=== PATIENT | female | born 1980 | race Caucasian/White ===

== ENCOUNTER 2016-09-11 12:59 | Emergency (ER) | payer OTHER ==
--- NOTE | 2016-09-11 13:57 | ED ORDER SUMMARY ---
..... Patient: BROOKE ÁLVAREZ OrderSheet [facility] VisitID: [id number] [address] [place] [address] 36y, F Registration Date/Time: 09/11/2016 ORDER SHEET Weight: 66.6 kg (stated) Allergies: Dilaudid, Hydocodone, Penicillins, Topamax GENERAL ORDERS: MEDICATION ORDERS: Ativan IM 2 mg (HIGH ALERT MEDICATION, NOW) (13:26 09/11/2016 Dorie A.R.N.P.) (14:13 Susy R.N.) IV FLUIDS: ORDER SHEET NOTES: [Electronically signed by Latanya Solis R.N. (14:23 09/11/2016)] [Electronically signed by Denisse TorrezR.N.P. (15:01 09/11/2016)] [Electronically locked/signed by Latanya Solis R.N. (14:23 09/11/2016)]
--- NOTE | 2016-09-11 13:57 | ED ORDER SUMMARY ---
..... Patient: BROOKE ÁLVAREZ OrderSheet [facility] VisitID: [id number] [address] [place] [address] 36y, F Registration Date/Time: 09/11/2016 ORDER SHEET Weight: 66.6 kg (stated) Allergies: Dilaudid, Hydocodone, Penicillins, Topamax GENERAL ORDERS: MEDICATION ORDERS: Ativan IM 2 mg (HIGH ALERT MEDICATION, NOW) (13:26 09/11/2016 Dorie A.R.N.P.) (14:13 Susy R.N.) IV FLUIDS: ORDER SHEET NOTES: [Electronically signed by Latanya Solis R.N. (14:23 09/11/2016)] [Electronically signed by Denisse TorrezR.N.P. (15:01 09/11/2016)] [Electronically locked/signed by Latanya Solis R.N. (14:23 09/11/2016)]
--- NOTE | 2016-09-11 13:57 | ED NURSING NOTES ---
Clinical Report - Nurses Merged With [facility] [address] [place] [address] 09/11/2016 13:03 Patient: BROOKE ÁLVAREZ TRIAGE Triage time 13:14 Sep 11 2016. Acuity: LEVEL 4. Chief Complaint: ANXIETY. Alert. No acute distress. --13:19 Latanya Solis R.N. 13:14 09/11/16. BP: 108/77. HR: 78. RR: 16. O2 saturation: 98%. Temp: 98.4 F. Pain level now: 010. --13:19 Latanya Solis R.N. Weight: 66.6 kg stated. Height/Length: 65 inches Per Patient. BMI: 24.5. --13:18 Latanya Solis R.N. Medications OxyCODONE HCl Oral. --13:15 Latanya Solis R.N. Cipro for kidney infection. Vitamins Oral. --13:15 Latanay Solis R.N. Allergies Dilaudid.(confusion) (skin sores) --13:15 Latanya Solis R.N. Hydocodone. Definite Moderate (CASTELLANOS's) Penicillins. Definite (as an infant) Topamax. Possible Moderate (Deep Sleep) --13:15 Latanya Solis R.N. History Arrived by private vehicle. Historian: patient. Accompanied by family. Onset. (5 days ago). ( pt states that she has many things going on and is very stressful.). She has had sleeping difficulties. Denies feelings of depression or having hallucinations. Treatment [employer]IPPER: None. PAST MEDICAL HX: Immunizations: up-to-date. Last normal menstrual period now. Denies current . SOCIAL HX: Never smoker. No alcohol use or drug use. No infectious disease exposure. SELF HARM ASSESSMENT: A self harm assessment was performed. The patient was asked "Do you have thoughts of harming or killing yourself?". FALL RISK ASSESSMENT: Fall risk assessment completed. No fall risk identified. NUTRITIONAL RISK ASSESSMENT: The nutritional risk assessment revealed no deficiencies. FUNCTIONAL ASSESSMENT: Functional assessment: no impairments noted. LEARNING NEEDS ASSESSMENT: The learning needs assessment revealed no barriers. ABUSE ASSESSMENT: Abuse assessment: The patient was asked "Do you feel safe in your home?". SKIN INTEGRITY ASSESSMENT: Skin integrity risk assessment completed. No skin integrity risk identified. --13:19 Latanya Solis R.N. PROBLEMS: Post-Op Complications. Fractured Phalanx (Toe). Gestational diabetes mellitus. Problems. Care. OB History. Pelvic Pain. . Influenza. Flu . UTI - Urinary Tract Infection. Dysfunctional Uterine Bleeding. Dysmenorrhea. Nausea. Abdominal Pain. Dental Pain. Dental Caries. Dental Abscess. Depression. Substance Abuse. Immunizations. Back Pain. LNMP - Last Normal Menstrual Period. --13:16 Latanya Solis R.N. ADDITIONAL SURGERIES: Back Surgery. . Dental Surgery. Foot. Toe surgery. --13:17 Latanya Solis R.N. Interventions ID band on patient. --13:19 Latanya Solis R.N. PHYSICAL ASSESSMENT GENERAL / NEURO / PSYCH: Alert. Oriented X 4. Appears in no acute distress. Speech within normal limits. Patient appears calm and cooperative. Patient appears well-nourished and neat and clean. RESPIRATORY: Respirations not labored. CVS: Capillary refill less than 2 seconds. GI / : Abdomen soft and nontender. SKIN: Skin is warm and dry. --13:19 Latanya Solis R.N. NURSING PROGRESS NOTES Suicide precautions initiated. Family at bedside. Two patient identifiers checked. Call light placed in reach. Side rails up x 1. Bed placed in lowest position. Brakes of bed on. --13:20 Latanya Solis R.N. 14:13 09/11/2016 Ativan (LORazepam) IM 2 mg given. Given in the left deltoid. Allergies verified, confirmed 5 rights and sedative warning given to the patient. --14:13 Latanya Solis R.N. DISPOSITION / DISCHARGE The following issues were addressed: psycho-social issues. --14:14 Latanya Solis R.N. 14:14 09/11/16. BP: 109/69. HR: 70. O2 saturation: 97%. --14:14 Latanya Solis R.N. Departure time: 14:Sep 11 2016. No learning barriers present. Discharge instructions provided and reviewed with the patient. Reviewed warnings (no driving). Reviewed medication(s) side effects, precautions, dosing and course information. Prescription(s) given to the patient. Reviewed referral to a primary care physician. Activity restrictions (no driving) reviewed. Patient verbalized understanding. Written instructions provided in Occitan. The patient was discharged home and accompanied by spouse. She left the Emergency Department ambulatory and via private vehicle. Spouse driving. --14:22 Latanya Solis R.N. Locked/Released at 09/11/2016 14:23 by Latanya Solis R.N.
--- NOTE | 2016-09-11 13:57 | ED CLINICAL REPORT ---
Clinical Report - Physicians/Mid Levels [facility] [address] [place] [address] 09/11/2016 13:03 Patient: BROOKE ÁLVAREZ Time Seen: 1315; initial patient contact, initial documentation, patient care assumed. Arrived- By private vehicle. Not in custody. Historian- patient. HISTORY OF PRESENT ILLNESS Chief Complaint: ANXIOUS. This started about 1 months ago. The patient has experienced situational problems but not exhibited a behavior change and was not found wandering and is compliant with medication. (having panic/anxiety attack, has had them before, but they are getting much worse, before she could calm herself down, and now she feels like she can't, when they come on they come on really strong, full blown, starts breathing fast, gets chest discomfort, sweaty). No recent drug use or alcohol consumption. Has not been sleeping. She has had anxiety. Has not been depressed. No anger, unusual behavior, paranoia, delusions or self-injury inflicted. No hallucinations. The symptoms are described as severe. No injury is present. Additional history - under lots of stress, left spouse, in family, and more. needs something to calm her down and help relax has appt at 1500 today with , wanted to come here first. Similar symptoms previously: Recent medical care: Not recently seen/assessed. REVIEW OF SYSTEMS No chest pain, palpitations, vomiting or diarrhea. All systems otherwise negative, except as recorded above. PAST HISTORY See nurses notes. ( PROBLEMS: Post-Op Complications. Fractured Phalanx (Toe). Gestational diabetes mellitus. Problems. Care. OB History. Pelvic Pain. . Influenza. Flu . UTI - Urinary Tract Infection. Dysfunctional Uterine Bleeding. Dysmenorrhea. Nausea. Abdominal Pain. Dental Pain. Dental Caries. Dental Abscess. Depression. Substance Abuse. Immunizations. Back Pain. LNMP - Last Normal Menstrual Period. --13:16 Latanya Solis R.N. ADDITIONAL SURGERIES: Back Surgery. . Dental Surgery. Foot. Toe surgery. --13:17 Latanya Solis R.N.). SOCIAL HISTORY Never smoker. No alcohol use or drug use. Has social support. Has place to stay. FAMILY HISTORY Negative. ADDITIONAL NOTES The nursing notes have been reviewed with agreement regarding the chief complaint, HPI, ROS, PMH and patient medications and allergies. PHYSICAL EXAM Vital Signs: 09/11/2016 13:14 BP: 108/77. HR: 78. RR: 16. O2 saturation: 98%. Temp: 98.4 F. Pain level now: 0/10. Have been reviewed as normal and appear to be correct. Appearance: Alert. No acute distress. Appearance is normal. Anxious. Eyes: Pupils equal, round and reactive to light. Neck: Normal inspection. Neck supple. CVS: Normal heart rate and rhythm. Heart sounds normal. Respiratory: Breath sounds normal. Chest nontender. Back: No tenderness. Skin: Skin warm and dry. Normal skin color. Normal skin turgor. Extremities: Extremities exhibit normal ROM. No lower extremity edema. Psych / Neuro: Oriented X 3. Abnormal mood and affect. Speech normal. Cognition normal. Thought process and content normal. Insight and judgement normal. Cranial nerves normal (as tested). No cerebellar findings. No motor deficit. No sensory deficit. PROGRESS AND PROCEDURES Course of Care: 1410. Eber Houston here, pt advocate, stating that the pt called her from her exam room and asking what was wrong, caught me unaware, I didn't know there was an issue, nurse taking care of pt didn't report anything to me, and pt seemed fine with me and tx plan, happy that I was giving her injection here. Patient counseled in person regarding the patient's stable condition and diagnosis. Differential Diagnosis: Other possible considerations: substance abuse, anxiety, bipolar, manic. Above considerations are based on history and physical exam. Differential diagnosis was discussed with patient. Disposition: Discharged home in good and improved condition (13:57). Condition: good and stable. CLINICAL IMPRESSION Anxiety reaction. INSTRUCTIONS Prescription Medications: Xanax 0.25 mg: Take 1 orally every 8 hours as needed for anxiety. Dispense fifteen (15). No refills. Substitution is permissible. Follow-up: Follow up with your doctor keep today's 1500 appt, as discussed today as scheduled even if well. Summary of care provided to patient. Understanding of the discharge instructions verbalized by patient. (Electronically signed by Denisse Torrez A.R.N.P. 09/11/2016 15:01)
--- NOTE | 2016-09-11 13:57 | ED NURSING NOTES ---
Clinical Report - Nurses [facility] [address] [place] [address] 09/11/2016 13:03 Patient: BROOKE ÁLVAREZ TRIAGE Triage time 13:14 Sep 11 2016. Acuity: LEVEL 4. Chief Complaint: ANXIETY. Alert. No acute distress. --13:19 Latanya Solis R.N. 13:14 09/11/16. BP: 108/77. HR: 78. RR: 16. O2 saturation: 98%. Temp: 98.4 F. Pain level now: 010. --13:19 Latanya Solis R.N. Weight: 66.6 kg stated. Height/Length: 65 inches Per Patient. BMI: 24.5. --13:18 Latanya Solis R.N. Medications OxyCODONE HCl Oral. --13:15 Latanya Solis R.N. Cipro for kidney infection. Vitamins Oral. --13:15 Latanya Solis R.N. Allergies Dilaudid.(confusion) (skin sores) --13:15 Latanya Solis R.N. Hydocodone. Definite Moderate (CASTELLANOS's) Penicillins. Definite (as an infant) Topamax. Possible Moderate (Deep Sleep) --13:15 Latanya Solis R.N. History Arrived by private vehicle. Historian: patient. Accompanied by family. Onset. (5 days ago). ( pt states that she has many things going on and is very stressful.). She has had sleeping difficulties. Denies feelings of depression or having hallucinations. Treatment [employer] DR[employer]: None. PAST MEDICAL HX: Immunizations: up-to-date. Last normal menstrual period now. Denies current . SOCIAL HX: Never smoker. No alcohol use or drug use. No infectious disease exposure. SELF HARM ASSESSMENT: A self harm assessment was performed. The patient was asked "Do you have thoughts of harming or killing yourself?". FALL RISK ASSESSMENT: Fall risk assessment completed. No fall risk identified. NUTRITIONAL RISK ASSESSMENT: The nutritional risk assessment revealed no deficiencies. FUNCTIONAL ASSESSMENT: Functional assessment: no impairments noted. LEARNING NEEDS ASSESSMENT: The learning needs assessment revealed no barriers. ABUSE ASSESSMENT: Abuse assessment: The patient was asked "Do you feel safe in your home?". SKIN INTEGRITY ASSESSMENT: Skin integrity risk assessment completed. No skin integrity risk identified. --13:19 Latanya Solis R.N. PROBLEMS: Post-Op Complications. Fractured Phalanx (Toe). Gestational diabetes mellitus. Problems. Care. OB History. Pelvic Pain. . Influenza. Flu . UTI - Urinary Tract Infection. Dysfunctional Uterine Bleeding. Dysmenorrhea. Nausea. Abdominal Pain. Dental Pain. Dental Caries. Dental Abscess. Depression. Substance Abuse. Immunizations. Back Pain. LNMP - Last Normal Menstrual Period. --13:16 Latanya Solis R.N. ADDITIONAL SURGERIES: Back Surgery. . Dental Surgery. Foot. Toe surgery. --13:17 Latanya Solis R.N. Interventions ID band on patient. --13:19 Latanya Solis R.N. PHYSICAL ASSESSMENT GENERAL / NEURO / PSYCH: Alert. Oriented X 4. Appears in no acute distress. Speech within normal limits. Patient appears calm and cooperative. Patient appears well-nourished and neat and clean. RESPIRATORY: Respirations not labored. CVS: Capillary refill less than 2 seconds. GI / : Abdomen soft and nontender. SKIN: Skin is warm and dry. --13:19 Latanya Solis R.N. NURSING PROGRESS NOTES Suicide precautions initiated. Family at bedside. Two patient identifiers checked. Call light placed in reach. Side rails up x 1. Bed placed in lowest position. Brakes of bed on. --13:20 Latanya Solis R.N. 14:13 09/11/2016 Ativan (LORazepam) IM 2 mg given. Given in the left deltoid. Allergies verified, confirmed 5 rights and sedative warning given to the patient. --14:13 Laatnya Solis R.N. DISPOSITION / DISCHARGE The following issues were addressed: psycho-social issues. --14:14 Latanya Solis R.N. 14:14 09/11/16. BP: 109/69. HR: 70. O2 saturation: 97%. --14:14 Latanya Solis R.N. Departure time: 14:Sep 11 2016. No learning barriers present. Discharge instructions provided and reviewed with the patient. Reviewed warnings (no driving). Reviewed medication(s) side effects, precautions, dosing and course information. Prescription(s) given to the patient. Reviewed referral to a primary care physician. Activity restrictions (no driving) reviewed. Patient verbalized understanding. Written instructions provided in Portuguese. The patient was discharged home and accompanied by spouse. She left the Emergency Department ambulatory and via private vehicle. Spouse driving. --14:22 Latanya Solis R.N. Locked/Released at 09/11/2016 14:23 by Latanya Solis R.N.
--- NOTE | 2016-09-11 15:02 | ED MED RECONCILIATION SUMMARY ---
Patient: BROOKE ÁLVAREZ Medication Reconciliation Report [facility] VisitID: [id number] [address] [place] [address] 36y, F Registration Date/Time: 09/11/2016 Weight: 66.6 kg Height/Length: 65 in. BMI: 24.5 ALLERGIES: Dilaudid, Hydocodone, Penicillins, Topamax The patient's Home Medications are listed below: THE FOLLOWING MEDICATIONS NEED TO BE RECONCILED: Cipro for kidney infection OxyCODONE HCl Oral Vitamins Oral The source(s) of the original Home Medication information: Not obtained. The following Medications were given to the patient in the Emergency Department: Ativan [IM] IM 2 mg, administered: 09/11/2016 2:13:00 PM The following Medications were prescribed to the patient: Xanax 0.25 mg: Take 1 orally every 8 hours as needed for anxiety. Dispense fifteen (15). No refills. Substitution is permissible. -- Denisse Torrez A.R.N.P.
--- NOTE | 2016-09-11 15:02 | ED DISCHARGE INSTRUCTIONS ---
Patient: BROOKE ÁLVAREZ General Instructions [facility] VisitID: [id number] [address] [place] [address] 36y, F Registration Date/Time: 09/11/2016 Anxiety reaction. INSTRUCTIONS Prescription Medications: Xanax 0.25 mg: Take 1 orally every 8 hours as needed for anxiety. Dispense fifteen (15). No refills. Substitution is permissible. Follow-up: Follow up with your doctor keep today's 1500 appt, as discussed today as scheduled even if well. Summary of care provided to patient. Understanding of the discharge instructions verbalized by patient. ADDITIONAL INFORMATION Stress Reaction Anxiety is the feeling we all get when we think something bad might happen. It is a normal response to stress and usually causes only a mild reaction. When anxiety becomes more severe, emotions may interfere with daily life. In some cases, you may not even be aware of what it is youre anxious about! During an anxiety reaction, you may feel like you are helpless, nervous, depressed or irritable. Your body may show signs of anxiety in many ways. You may experience dry mouth, shakiness, dizziness, weakness, trouble breathing, chest pressure, headache, nausea, diarrhea, tiredness, inability to sleep or sexual problems. Home Care: 1) Try to locate the sources of stress in your life. They may not be obvious! These may include: -- Daily hassles of life which pile up (traffic jams, missed appointments, car troubles, etc.) -- Major life changes, both good (new baby, job promotion) and bad (loss of job, loss of loved one) -- Overload: feeling that you have too many responsibilities and can't take care of all of them at once -- Feeling helpless, feeling that your problems are beyond what youre able to solve 2) Notice how your body reacts to stress. Learn to listen to your body signals. This will help you take action before the stress becomes severe. 3) When you can, do something about the source of your stress. (Avoid hassles, limit the amount of change that happens in your life at one time and take a break when you feel overloaded). 4) Unfortunately, many stressful situations cannot be avoided. It is necessary to learn HOW TO MANAGE STRESS better. There are many proven methods that will reduce your anxiety. These include simple things like exercise, good nutrition and adequate rest. Also, there are certain techniques that are helpful: relaxation and breathing exercises, visualization, biofeedback and meditation. For more information about this, consult your doctor or go to a local bookstore and review the many books and tapes available on this subject. Follow Up If you feel that your anxiety is not responding to self-help measures, contact your doctor or make an appointment with a counselor. Get Prompt Medical Attention if any of the following occur: -- Your symptoms get worse -- Chest pain or trouble breathing -- Severe headache not relieved by rest and mild pain reliever -- Rapid or irregular heartbeat, fainting Panic Attack A panic attack is an extreme fear reaction that comes on for no apparent reason. Symptoms may include pounding or racing heartbeat, shortness of breath, dizziness, weakness and sweating. There is usually a fear that something terrible will happen or that you may . The attack may last a few minutes up to a few hours. Between attacks things will seem quite normal. This condition has a psychological cause and can be treated with the help of a therapist or psychiatrist. Medication is often used and can be very helpful for this problem. Home Care: Try to identify the sources of stress in your life. It may not be obvious! These may include: Daily hassles of life which pile up (traffic jams, missed appointments, car troubles, etc.). Major life changes, both good (new baby, job promotion) and bad (loss of job, loss of loved one). Overload: feeling that you have too many responsibilities and can't take care of everything at once. Helplessness: feeling like your problems are too much for you to handle. Notice how your body reacts to stress. Learn to listen to your body signals so that you can take action before the stress becomes severe. When possible, AVOID or REDUCE THE CAUSE OF STRESS. Avoid hassles, limit the amount of change that is happening in your life at one time or take a break when you feel overloaded. Unfortunately, many stressful situations cannot be avoided. Therefore, it is necessary to LEARN HOW TO MANAGE STRESS better. There are many proven methods that work and will reduce your anxiety. These include simple things like exercise, good nutrition and adequate rest. Also, there are certain techniques that are helpful: relaxation and breathing exercises, visualization, biofeedback, meditation or simply taking some time-out to clear your mind. For more information about this, consult your doctor or go to a local bookstore and review the many books and tapes available on this subject. Follow Up with your doctor or a therapist as advised. Get Prompt Medical Attention if any of the following occur: Worsening of your symptoms to the point of feeling [id number] A change in the type of pain: if it feels different, becomes more severe, lasts longer, or begins to spread into your shoulder, arm, neck, jaw or back Shortness of breath or increased pain with breathing Increasing feeling of weakness or dizziness Fainting Cough with dark colored sputum (phlegm) or blood Fever of 100.4F (38C) or higher, or as directed by your healthcare provider Swelling, pain or redness in one leg Alprazolam Oral tablet What is this medicine? ALPRAZOLAM (al PRAY jamie yip) is a benzodiazepine. It is used to treat anxiety and panic attacks. How should I use this medicine? Take this medicine by mouth with a glass of water. Follow the directions on the prescription label. Take your medicine at regular intervals. Do not take it more often than directed. If you have been taking this medicine regularly for some time, do not suddenly stop taking it. You must gradually reduce the dose or you may get severe side effects. Ask your doctor or health child care worker for advice. Even after you stop taking this medicine it can still affect your body for several days. Talk to your boarder hand regarding the use of this medicine in children. Special care may be needed. What side effects may I notice from receiving this medicine? Side effects that you should report to your doctor or health child care worker as soon as possible: allergic reactions like skin rash, itching or hives, swelling of the face, lips, or tongue confusion, forgetfulness depression difficulty sleeping difficulty speaking feeling faint or lightheaded, falls mood changes, excitability or aggressive behavior muscle cramps trouble passing urine or change in the amount of urine unusually weak or tired Side effects that usually do not require medical attention (report to your doctor or health child care worker if they continue or are bothersome): change in sex drive or performance changes in appetite What may interact with this medicine? Do not take this medicine with any of the following medications: certain medicines for HIV infection or AIDS ketoconazole itraconazole This medicine may also interact with the following medications: control pills certain macrolide antibiotics like clarithromycin, erythromycin, troleandomycin cimetidine cyclosporine ergotamine grapefruit juice herbal or dietary supplements like kava kava, melatonin, dehydroepiandrosterone, DHEA, Gunner's Wort or valerian imatinib, STI-571 isoniazid levodopa medicines for depression, anxiety, or psychotic disturbances prescription pain medicines rifampin, rifapentine, or rifabutin some medicines for blood pressure or heart problems some medicines for seizures like carbamazepine, oxcarbazepine, phenobarbital, phenytoin, primidone What if I miss a dose? If you miss a dose, take it as soon as you can. If it is almost time for your next dose, take only that dose. Do not take double or extra doses. Where should I keep my medicine? Keep out of the reach of children. This medicine can be abused. Keep your medicine in a safe place to protect it from theft. Do not share this medicine with anyone. Selling or giving away this medicine is dangerous and against the law. Store at room temperature between 20 and 25 degrees C (68 and 77 degrees F). Throw away any unused medicine after the expiration date. What should I tell my health care provider before I take this medicine? They need to know if you have any of these conditions: an alcohol or drug abuse problem bipolar disorder, depression, psychosis or other mental health conditions glaucoma kidney or liver disease lung or breathing disease myasthenia gravis Parkinson's disease porphyria seizures or a history of seizures suicidal thoughts an unusual or allergic reaction to alprazolam, other benzodiazepines, foods, dyes, or preservatives or trying to get breast-feeding What should I watch for while using this medicine? Visit your doctor or health child care worker for regular checks on your progress. Your body can become dependent on this medicine. Ask your doctor or health child care worker if you still need to take it. You may get drowsy or dizzy. Do not drive, use machinery, or do anything that needs mental alertness until you know how this medicine affects you. To reduce the risk of dizzy and fainting spells, do not stand or sit up quickly, especially if you are an older patient. Alcohol may increase dizziness and drowsiness. Avoid alcoholic drinks. Do not treat yourself for coughs, colds or allergies without asking your doctor or health child care worker for advice. Some ingredients can increase possible side effects. You have been given the following additional information: Anxiety Reaction Panic Attack Alprazolam Oral tablet (Electronically signed by Denisse Torrez A.R.N.P. 09/11/2016 15:01)
--- NOTE | 2016-09-11 15:02 | ED DISCHARGE INSTRUCTIONS ---
Patient: BROOKE ÁLVAREZ General Instructions [facility] VisitID: [id number] [address] [place] [address] 36y, F Registration Date/Time: 09/11/2016 Anxiety reaction. INSTRUCTIONS Prescription Medications: Xanax 0.25 mg: Take 1 orally every 8 hours as needed for anxiety. Dispense fifteen (15). No refills. Substitution is permissible. Follow-up: Follow up with your doctor keep today's 1500 appt, as discussed today as scheduled even if well. Summary of care provided to patient. Understanding of the discharge instructions verbalized by patient. ADDITIONAL INFORMATION Stress Reaction Anxiety is the feeling we all get when we think something bad might happen. It is a normal response to stress and usually causes only a mild reaction. When anxiety becomes more severe, emotions may interfere with daily life. In some cases, you may not even be aware of what it is youre anxious about! During an anxiety reaction, you may feel like you are helpless, nervous, depressed or irritable. Your body may show signs of anxiety in many ways. You may experience dry mouth, shakiness, dizziness, weakness, trouble breathing, chest pressure, headache, nausea, diarrhea, tiredness, inability to sleep or sexual problems. Home Care: 1) Try to locate the sources of stress in your life. They may not be obvious! These may include: -- Daily hassles of life which pile up (traffic jams, missed appointments, car troubles, etc.) -- Major life changes, both good (new baby, job promotion) and bad (loss of job, loss of loved one) -- Overload: feeling that you have too many responsibilities and can't take care of all of them at once -- Feeling helpless, feeling that your problems are beyond what youre able to solve 2) Notice how your body reacts to stress. Learn to listen to your body signals. This will help you take action before the stress becomes severe. 3) When you can, do something about the source of your stress. (Avoid hassles, limit the amount of change that happens in your life at one time and take a break when you feel overloaded). 4) Unfortunately, many stressful situations cannot be avoided. It is necessary to learn HOW TO MANAGE STRESS better. There are many proven methods that will reduce your anxiety. These include simple things like exercise, good nutrition and adequate rest. Also, there are certain techniques that are helpful: relaxation and breathing exercises, visualization, biofeedback and meditation. For more information about this, consult your doctor or go to a local bookstore and review the many books and tapes available on this subject. Follow Up If you feel that your anxiety is not responding to self-help measures, contact your doctor or make an appointment with a counselor. Get Prompt Medical Attention if any of the following occur: -- Your symptoms get worse -- Chest pain or trouble breathing -- Severe headache not relieved by rest and mild pain reliever -- Rapid or irregular heartbeat, fainting Panic Attack A panic attack is an extreme fear reaction that comes on for no apparent reason. Symptoms may include pounding or racing heartbeat, shortness of breath, dizziness, weakness and sweating. There is usually a fear that something terrible will happen or that you may . The attack may last a few minutes up to a few hours. Between attacks things will seem quite normal. This condition has a psychological cause and can be treated with the help of a therapist or psychiatrist. Medication is often used and can be very helpful for this problem. Home Care: Try to identify the sources of stress in your life. It may not be obvious! These may include: Daily hassles of life which pile up (traffic jams, missed appointments, car troubles, etc.). Major life changes, both good (new baby, job promotion) and bad (loss of job, loss of loved one). Overload: feeling that you have too many responsibilities and can't take care of everything at once. Helplessness: feeling like your problems are too much for you to handle. Notice how your body reacts to stress. Learn to listen to your body signals so that you can take action before the stress becomes severe. When possible, AVOID or REDUCE THE CAUSE OF STRESS. Avoid hassles, limit the amount of change that is happening in your life at one time or take a break when you feel overloaded. Unfortunately, many stressful situations cannot be avoided. Therefore, it is necessary to LEARN HOW TO MANAGE STRESS better. There are many proven methods that work and will reduce your anxiety. These include simple things like exercise, good nutrition and adequate rest. Also, there are certain techniques that are helpful: relaxation and breathing exercises, visualization, biofeedback, meditation or simply taking some time-out to clear your mind. For more information about this, consult your doctor or go to a local bookstore and review the many books and tapes available on this subject. Follow Up with your doctor or a therapist as advised. Get Prompt Medical Attention if any of the following occur: Worsening of your symptoms to the point of feeling [id number] A change in the type of pain: if it feels different, becomes more severe, lasts longer, or begins to spread into your shoulder, arm, neck, jaw or back Shortness of breath or increased pain with breathing Increasing feeling of weakness or dizziness Fainting Cough with dark colored sputum (phlegm) or blood Fever of 100.4F (38C) or higher, or as directed by your healthcare provider Swelling, pain or redness in one leg Alprazolam Oral tablet What is this medicine? ALPRAZOLAM (al PRAY jamie yip) is a benzodiazepine. It is used to treat anxiety and panic attacks. How should I use this medicine? Take this medicine by mouth with a glass of water. Follow the directions on the prescription label. Take your medicine at regular intervals. Do not take it more often than directed. If you have been taking this medicine regularly for some time, do not suddenly stop taking it. You must gradually reduce the dose or you may get severe side effects. Ask your doctor or health caregivers non medical for advice. Even after you stop taking this medicine it can still affect your body for several days. Talk to your four slide machine operator regarding the use of this medicine in children. Special care may be needed. What side effects may I notice from receiving this medicine? Side effects that you should report to your doctor or health caregivers non medical as soon as possible: allergic reactions like skin rash, itching or hives, swelling of the face, lips, or tongue confusion, forgetfulness depression difficulty sleeping difficulty speaking feeling faint or lightheaded, falls mood changes, excitability or aggressive behavior muscle cramps trouble passing urine or change in the amount of urine unusually weak or tired Side effects that usually do not require medical attention (report to your doctor or health caregivers non medical if they continue or are bothersome): change in sex drive or performance changes in appetite What may interact with this medicine? Do not take this medicine with any of the following medications: certain medicines for HIV infection or AIDS ketoconazole itraconazole This medicine may also interact with the following medications: control pills certain macrolide antibiotics like clarithromycin, erythromycin, troleandomycin cimetidine cyclosporine ergotamine grapefruit juice herbal or dietary supplements like kava kava, melatonin, dehydroepiandrosterone, DHEA, Gunner's Wort or valerian imatinib, STI-571 isoniazid levodopa medicines for depression, anxiety, or psychotic disturbances prescription pain medicines rifampin, rifapentine, or rifabutin some medicines for blood pressure or heart problems some medicines for seizures like carbamazepine, oxcarbazepine, phenobarbital, phenytoin, primidone What if I miss a dose? If you miss a dose, take it as soon as you can. If it is almost time for your next dose, take only that dose. Do not take double or extra doses. Where should I keep my medicine? Keep out of the reach of children. This medicine can be abused. Keep your medicine in a safe place to protect it from theft. Do not share this medicine with anyone. Selling or giving away this medicine is dangerous and against the law. Store at room temperature between 20 and 25 degrees C (68 and 77 degrees F). Throw away any unused medicine after the expiration date. What should I tell my health care provider before I take this medicine? They need to know if you have any of these conditions: an alcohol or drug abuse problem bipolar disorder, depression, psychosis or other mental health conditions glaucoma kidney or liver disease lung or breathing disease myasthenia gravis Parkinson's disease porphyria seizures or a history of seizures suicidal thoughts an unusual or allergic reaction to alprazolam, other benzodiazepines, foods, dyes, or preservatives or trying to get breast-feeding What should I watch for while using this medicine? Visit your doctor or health caregivers non medical for regular checks on your progress. Your body can become dependent on this medicine. Ask your doctor or health caregivers non medical if you still need to take it. You may get drowsy or dizzy. Do not drive, use machinery, or do anything that needs mental alertness until you know how this medicine affects you. To reduce the risk of dizzy and fainting spells, do not stand or sit up quickly, especially if you are an older patient. Alcohol may increase dizziness and drowsiness. Avoid alcoholic drinks. Do not treat yourself for coughs, colds or allergies without asking your doctor or health caregivers non medical for advice. Some ingredients can increase possible side effects. You have been given the following additional information: Anxiety Reaction Panic Attack Alprazolam Oral tablet (Electronically signed by Denisse Torrez A.R.N.P. 09/11/2016 15:01)
--- NOTE | 2016-09-11 15:02 | ED MAR SUMMARY ---
..... Medication Administration Record [facility] [address] [place] [address] Patient: BROOKE ÁLVAREZ Visit ID: [id number] 36y, F Weight: 66.6 kg Height/Length: 65 in BMI: 24.5 ALLERGIES: Dilaudid, Hydocodone, Penicillins, Topamax Given 14:13 09/11/2016 Latanya Solis R.N. Medication Administered: ATIVAN [IM] (LORAZEPAM), Dose: 2 mg IM. Medication Ordered: Ativan IM 2 mg (HIGH ALERT MEDICATION, NOW).
--- NOTE | 2016-09-11 15:02 | ED MAR SUMMARY ---
..... Medication Administration Record [facility] [address] [place] [address] Patient: BROOKE ÁLVAREZ Visit ID: [id number] 36y, F Weight: 66.6 kg Height/Length: 65 in BMI: 24.5 ALLERGIES: Dilaudid, Hydocodone, Penicillins, Topamax Given 14:13 09/11/2016 Latanya Solis R.N. Medication Administered: ATIVAN [IM] (LORAZEPAM), Dose: 2 mg IM. Medication Ordered: Ativan IM 2 mg (HIGH ALERT MEDICATION, NOW).
--- NOTE | 2016-09-11 15:02 | ED MED RECONCILIATION SUMMARY ---
Patient: BROOKE ÁLVAREZ Medication Reconciliation Report [facility] VisitID: [id number] [address] [place] [address] 36y, F Registration Date/Time: 09/11/2016 Weight: 66.6 kg Height/Length: 65 in. BMI: 24.5 ALLERGIES: Dilaudid, Hydocodone, Penicillins, Topamax The patient's Home Medications are listed below: THE FOLLOWING MEDICATIONS NEED TO BE RECONCILED: Cipro for kidney infection OxyCODONE HCl Oral Vitamins Oral The source(s) of the original Home Medication information: Not obtained. The following Medications were given to the patient in the Emergency Department: Ativan [IM] IM 2 mg, administered: 09/11/2016 2:13:00 PM The following Medications were prescribed to the patient: Xanax 0.25 mg: Take 1 orally every 8 hours as needed for anxiety. Dispense fifteen (15). No refills. Substitution is permissible. -- Denisse Torrez A.R.N.P.
== END 2016-09-11 14:23 | disposition home or self-care (01) ==
LOC: ED SRH 12:59
DX: F41.1 Generalized anxiety disorder (principal); Z79.891 Long term (current) use of opiate analgesic; Z79.2 Long term (current) use of antibiotics; Z88.0 Allergy status to penicillin; Z88.5 Allergy status to narcotic agent; Z88.8 Allergy status to other drugs, medicaments and biological substances